=== PATIENT | male | born 1935 ===

== ENCOUNTER 2018-07-15 03:41 | Emergency (ER) | payer MEDICARE, OTHER ==
[~2018-07-15] VITALS: Ht 167.6 cm; Wt 60.8 kg
[2018-07-15 07:44] LABS: Basophils # (auto) 0 uL; Basophils % (auto) 0.2 % (0.0-2.0); Eosinophils # (auto) 0 uL; Eosinophils % (auto) 0.2 % (0.0-7.0); Lymphocytes # (auto) 1.3 uL; Mean Corpuscular Hemoglobin 25.3 pg (28.0-32.0); Mean Corpuscular Hgb Conc. 31.4 g/dL (32.0-36.0); Mean Corpuscular Volume 80.6 fL (80.0-100.0); Monocytes # (auto) 0.9 uL
[2018-07-15 07:46] LABS: Hemoglobin 8.8 g/dL (13.5-17.5); Lymphocytes % (auto) 18.4 % (10.0-50.0); Monocytes % (auto) 13.2 % (0.0-12.0); Neutrophils # (auto) 4.8 uL; Platelet Count (auto) 211 10^3/uL (140-450); Red Blood Cells 3.47 10^6/uL (4.5-5.90); White Blood Cell 7.1 10^3/uL (4.4-10.8)
[2018-07-15 07:52] LABS: Red Cell Distribution Width 22.5 % (11.8-14.3)
[2018-07-15 08:14] LABS: Calcium 8.2 mg/dL (8.5-10.1); Potassium 3.6 mmol/L (3.5-5.1)
[2018-07-15 08:18] LABS: Albumin 1.8 g/dL (3.4-5.0); BUN/Creatinine Ratio 19.4
[2018-07-15 08:20] LABS: Bilirubin, Total 0.3 mg/dL (0.2-1.0); Total Protein 8.5 g/dL (6.4-8.2)
[2018-07-15 08:36] LABS: Urine Bacteria NONE SEEN /hpf (None Seen); Urine Blood Negative /uL (Negative); Urine Mucus FEW (None Seen); Urine Specific Gravity 1.016 (1.001-1.035); Urine WBC 1 /hpf (0 - 3)
[2018-07-15 09:32] VITALS: BP 141/86
== END 2018-07-15 10:47 | disposition home or self-care (01) ==
LOC: EDBD 03:41 → ER 03:41
DX: E16.2 Hypoglycemia, unspecified (principal); D64.9 Anemia, unspecified; I10 Essential (primary) hypertension; E11.9 Type 2 diabetes mellitus without complications; Z86.73 Personal history of transient ischemic attack (TIA), and cerebral infarction without residual deficits
CPT/HCPCS: 36415; 71045; 80053; 81001; 82962; 85025